=== PATIENT | female | born 1950 | race Caucasian/White ===

== ENCOUNTER → 2016-09-30 | Outpatient (CLI) | payer OTHER ==
[2015-08-28 10:57] VITALS: BP 137/78
--- NOTE | 2016-09-30 15:13 | CT ---
HISTORY: Pulmonary nodule Study: CT chest without contrast Comparison: Chest CT 03/18/2016 Technique: Multiple axial images of the chest were obtained from the thoracic inlet to the upper abd omen without the administration of IV contrast. Dose reduction techniques including Automated Expos ure Control (AEC) and adjustment of mA and kV were utilized. Findings: Please note evaluation of vascular structures is limited without the use of IV contrast. Normal appe arance of the heart and pericardium. The aorta appears normal in course and caliber. There are posts urgical changes noted in the right upper lobe from wedge resection. The ovoid nodular density previo usly discussed is smaller on today's exam measuring 1.3 cm and appears less conspicuous. The left lo wer lobe pulmonary nodule previously described is no longer visualized. Mild interstitial scarring i s present peripherally in the bilateral lower lung zones. The airways are clear. No effusion or pneu mothorax. There are stable chronic compression fractures of T7, T10, and L1. The visualized portions of the up per abdomen are grossly unremarkable. There is a stable hypodensity in the spleen. There are bilater al breast implants in place. IMPRESSION: 1. Previously described right upper lobe pulmonary nodule is smaller and less conspicuous on today' s exam measuring 1.3 cm. There are surrounding postsurgical changes from previous wedge resection. 2. Previously described left lower lobe pulmonary nodule is no longer visualized. 3. Stable interstitial scarring at the lung bases bilaterally and additional chronic findings detail ed above. Reported By:
== END ==
LOC: RAD 13:33
PROVIDERS: ATTEND Internal Medicine Pulmonary Disease
DX: Z86.2 Personal history of diseases of the blood and blood-forming organs and certain disorders involving the immune mechanism (principal); R91.1 Solitary pulmonary nodule
CPT/HCPCS: 71250

== ENCOUNTER → 2017-03-22 | Outpatient (CLI) | payer OTHER ==
[2015-08-28 10:57] VITALS: BP 137/78
--- NOTE | 2017-03-22 10:15 | CT ---
STUDY: CT CHEST WITHOUT CONTRAST HISTORY: Sarcoidosis of lung. Shortness of breath. Comparison: Chest CT from September 30, 2016. Technique: Multiple axial images of the chest were obtained from the thoracic inlet to the upper abdo men without the administration of IV contrast. Findings: The mediastinum does not demonstrate significant pathological lymphadenopathy. There is no paricardi al effusion observed. The vascular structures are incompletely assessed the absence of intravenous contrast. The thoracic a marisol is normal in its contour without evidence for aneurysmal dilatation. The central pulmonary maddison rial system has a normal nonenhanced morphology. Postsurgical changes from prior right upper lobe wedge resection are again noted. The previously desc ribed nodular density in the periphery of the right upper lobe measures 1.2 cm, and is not significan tly changed. Mild scarring in both lower lobes is again noted. There is no evidence of consolidation, significant infiltrate, effusion or pneumothorax. No new pulmonary nodule or mass is identified. Compression deformities involving T7, T10 and L1 are unchanged. The visualized portions of the upper abdomen are grossly unremarkable. IMPRESSION: 1. No significant interval change in the appearance of the chest since the prior study. Stable appea karl of pulmonary nodule in the right upper lobe measuring 1.2 cm. 2. Stable scarring in both lung bases. Reported By:
== END ==
LOC: RAD 09:19
PROVIDERS: ATTEND Internal Medicine Pulmonary Disease
DX: D86.0 Sarcoidosis of lung (principal); R06.02 Shortness of breath; E03.4 Atrophy of thyroid (acquired); E27.49 Other adrenocortical insufficiency; E78.9 Disorder of lipoprotein metabolism, unspecified
CPT/HCPCS: 71250

== ENCOUNTER → 2017-04-06 | Outpatient (CLI) | payer OTHER ==
[2015-08-28 10:57] VITALS: BP 137/78
--- NOTE | 2017-04-06 14:36 | US ---
HISTORY: Right upper quadrant pain. Study: Right upper quadrant abdominal ultrasound Comparison: None. Technique: Multiple gonsales scale and color flow Doppler images of the right upper quadrant were obtaine d. Findings: The liver is normal in echotexture and size. No focal intraparenchymal mass or intrahepatic biliary ductal dilatation can be observed. The gallbladder fails to demonstrate evidence for cholelithiasis or layering sludge. The common bile duct is unremarkable measuring 3 millimeters. No pericholecysti c fluid or gallbladder wall thickening can be observed. The CBD measures within normal limits. The ri ght kidney demonstrates increased renal echotexture which can be seen with chronic medical renal dise ase. This can be followed up bilateral renal sonography. The right kidney measurers 8 x 5 x 4 centime ters. No hydronephrosis or perirenal fluid can be observed. The pancreatic head and body are unrema rkable. The pancreatic tail is largely obscured by overlying bowel gas. No perinephric fluid collect ion is identified. IMPRESSION: 1. Increased right renal echotexture, as discussed above. 2. No other right upper quadrant sonographic abnormalities are seen. Reported By:
== END ==
LOC: RAD 08:59
PROVIDERS: ATTEND Internal Medicine
DX: R10.11 Right upper quadrant pain (principal); R94.4 Abnormal results of kidney function studies
CPT/HCPCS: 76705

== ENCOUNTER → 2017-04-12 | Outpatient (CLI) | payer OTHER ==
[2015-08-28 10:57] VITALS: BP 137/78
== END ==
LOC: RAD 08:07
PROVIDERS: ATTEND Internal Medicine
DX: R10.11 Right upper quadrant pain (principal)
CPT/HCPCS: 78227

== ENCOUNTER → 2017-05-31 | Outpatient (CLI) | payer OTHER ==
[2015-08-28 10:57] VITALS: BP 137/78
--- NOTE | 2017-05-31 15:08 | MG ---
HISTORY: SCREENING Comparison: April 10, 2015 and May 10, 2016 FINDINGS: Bilateral CC and MLO projections of the right and left breast were obtained utilizing full filled and pushback technique with bilateral subpectoral silicone implants appearing grossly intact. Heterogen eously dense fibroglandular tissue is seen to be present. No significant architectural distortion, m ass or clustered microcalcifications can be observed to suggest malignancy. No skin thickening or ni pple retraction is appreciated. No pathological lymphadenopathy can be identified. IMPRESSION: NO RADIOGRAPHIC EVIDENCE OF MALIGNANCY. ACR CATEGORY I - NEGATIVE EXAM. FOLLOW-UP EXAM 1 YEAR. Diagnostic CAD was utilized and reviewed. * 0 (ZERO) - ASSESSMENT INCOMPLETE; ADDITIONAL IMAGING IS NEEDED. * 1/1 (ONE) - NEGATIVE. * 2/II (TWO) - BENIGN FINDINGS. * 3/III (THREE) - PROBABLY BENIGN FINDING; SHORT INTERVAL FOLLOW-UP SUGGESTED. * 4/IV (FOUR) - SUSPICIOUS ABNORMALITY; BIOPSY SHOULD BE CONSIDERED. * 5/V - HIGHLY SUSPICIOUS OF MALIGNANCY; BIOPSY SHOULD BE PERFORMED. A NEGATIVE X-RAY REPORT SHOULD NOT DELAY BIOPSY IF A DOMINANT OR CLINICALLY SUSPICIOUS MASS IS PRESENT; 4 TO 8 PERCENT OF CANCERS ARE NOT IDENTIFIED BY X-RAY. A NEGA TIVE REPORT MAY REINFORCE THE CLINICAL IMPRESSION. ADENOSIS AND DENSE BREASTS MAY OBSCURE AN UNDERLY ING NEOPLASM. Reported By:
== END ==
LOC: RAD 09:35
PROVIDERS: ATTEND Specialist
DX: Z12.31 Encounter for screening mammogram for malignant neoplasm of breast (principal)
CPT/HCPCS: 77067

== ENCOUNTER → 2017-09-30 | Outpatient (CLI) | payer OTHER ==
[2015-08-28 10:57] VITALS: BP 137/78
--- NOTE | 2017-09-30 09:20 | CT ---
Indication: Sarcoidosis and shortness of breath Exam: CT chest without contrast. Technique: Axial spiral images were obtained from the level above the clavicles through the adrenals without contrast. Automated dose control was utilized. Comparison: 03/22/2017 Findings: The thyroid gland is unremarkable. There is mild plaque throughout the aorta which is sharron l caliber. There are small lymph nodes along the pretracheal region with the largest seen inferiorly measuring 1.4 cm. There small lymph nodes in the AP window measuring up to 1.2 cm. These appear uncha nged. There are bilateral breast implants which are intact and unchanged with no axillary adenopathy. There is a 2.7 cm hypodense lesion along the upper pole of the spleen which has elevated density me asurements but is unchanged. The adrenals are normal. There are chain sutures and associated scarring linear scarring along the right apex posteriorly and extending into the right upper lobe laterally a nd inferiorly . There is a persistent 1.2 cm area of nodular thickening laterally which is grossly un changed. There is mild linear scarring and thickening along the fissure extending anteriorly and infe riorly which is unchanged . There is mild linear scarring scattered along the lung bases which is unc hanged. There is subpleural linear scarring along the left lower lobe which is unchanged. No acute in filtrate or effusion is seen. No masses are identified. There several mild compression deformities al yun the T7, T10, and L1 vertebra which are unchanged. No retropulsed fragment is seen. Impression: Stable postop changes along the right apex and upper lobe with a persistent 1.2 cm area of nodular sc arring laterally which is unchanged . Stable scarring scattered in both lungs with no acute pulmonary abnormality seen. Borderline enlarged lymph nodes in the mediastinum which are unchanged and probably reactive in etiol ogy. 2.7 cm hypodense lesion in the spleen which is unchanged. Suggest ultrasound correlation. Multiple mild compression deformities throughout the spine which are unchanged. Reported By:
== END ==
LOC: RAD 08:16
PROVIDERS: ATTEND Internal Medicine Pulmonary Disease
DX: D86.0 Sarcoidosis of lung (principal); R06.02 Shortness of breath; Z23 Encounter for immunization; E27.49 Other adrenocortical insufficiency; E03.4 Atrophy of thyroid (acquired)
CPT/HCPCS: 71250